=== PATIENT | female | born 1945 | race African-American/Black ===

== ENCOUNTER 2016-10-13 12:49 | Inpatient (IN) | payer OTHER ==
[~2016-10-13] VITALS: Ht 160 cm; Wt 71.4 kg
[~2016-10-13 12:49] MED LIST: ASPIRIN325 M1 PO; CITALOPRAM20 MG PO; CLOPIDOGREL75 MG PO; FUROSEMIDE40 MG PO; LEVO0.0529 PO; PRAVACHOL20 MG PO; SPIRONOLACT25 MG PO; VITAMIN D31000 UNI3 PO
[2016-10-13 14:04] LABS: PLATELET COUNT 249 K/uL (152-353)
[2016-10-13 14:08] VITALS: BP 161/64; TEMP 98.6; Ht 160 cm; Wt 71.4 kg
[2016-10-13] MEDS ORDERED: LOSA50TA PO (14:19)
[2016-10-13 14:22] LABS: POTASSIUM 3.7 mmol/L (3.6-5.2); SODIUM 121 mmol/L (136-145)
[2016-10-13 16:00] VITALS: BP 135/60; TEMP 98.9
[2016-10-13 20:00] VITALS: BP 128/61; TEMP 98.9
[2016-10-13 22:54] LABS: POTASSIUM 4.1 mmol/L (3.6-5.2); SODIUM 122 mmol/L (136-145)
[2016-10-14] VITALS: BP 124/62; TEMP 98.2
[2016-10-14 04:00] VITALS: BP 125/56; TEMP 98.1
[2016-10-14 08:00] VITALS: BP 153/69; TEMP 98
[2016-10-14 08:19] LABS: PLATELET COUNT 201 K/uL (152-353)
[2016-10-14 09:20] LABS: POTASSIUM 4.3 mmol/L (3.6-5.2)
[2016-10-14 12:23] VITALS: BP 90/54; TEMP 98
[2016-10-14 16:00] VITALS: BP 100/58; TEMP 97.8
[2016-10-14 20:00] VITALS: BP 139/71; TEMP 99.3
[2016-10-14 20:38] LABS: POTASSIUM 3.8 mmol/L (3.6-5.2)
[2016-10-15] VITALS: BP 161/68; TEMP 99.1
[2016-10-15 04:00] VITALS: BP 124/75; TEMP 99
[2016-10-15 05:44] LABS: PLATELET COUNT 228 K/uL (152-353)
[2016-10-15 06:01] LABS: POTASSIUM 3.5 mmol/L (3.6-5.2)
[2016-10-15 08:00] VITALS: BP 134/42; TEMP 98.7
[2016-10-15 12:00] VITALS: BP 135/46; TEMP 99
== END 2016-10-15 14:51 | disposition home or self-care (01) | DRG 641 ==
LOC: MED/SURG 12:49
PROVIDERS: ADMIT Family Medicine
DX: E87.1 Hypo-osmolality and hyponatremia (principal); I47.1 Supraventricular tachycardia; N30.00 Acute cystitis without hematuria; R07.89 Other chest pain; R42 Dizziness and giddiness; E78.4 Other hyperlipidemia; I50.9 Heart failure, unspecified; R51 Headache; I49.9 Cardiac arrhythmia, unspecified; I48.91 Unspecified atrial fibrillation; I10 Essential (primary) hypertension; R53.83 Other fatigue; R11.10 Vomiting, unspecified; R60.9 Edema, unspecified
CPT/HCPCS: 36415; 80048; 80053; 82550; 83735; 83880; 84100; 84443; 84484; 85027; 85610; 85730; 93005; 93306; 94640; 94664; 94760; 96360; 96361; 96367; 96372; J1650; J1940

== ENCOUNTER 2016-10-20 15:33 | Observation (INO) | payer OTHER ==
[~2016-10-20] VITALS: Ht 157.5 cm; Wt 71.4 kg
[~2016-10-20 15:33] MED LIST changes: +LOSA50TA PO
--- NOTE | 2016-10-20 15:48 | NUR ---
PT TO ROOM 1106 VIA WC WITH FAMILY. PT ARM ELEVATED AND WARM COMPRESSES APPLIED IMMEDIATLEY. INSTRUCTED PT TO KEEP ELEVATED AND TO CONTINUE WITH WARM COMPRESSES. ASSESSMENT COMPLETE. IV ATTEMPT X 1 PER ERIKA AGUILAR, UNSUCCESSFUL. KINDRA ARRINGTON CALLED IN PER LARA HUANG RN. DR DICKINSON AT TO ASSESS PT. CAPILLARY REFILL GOOD WITH COLOR BACK IN BACK PER DR DICKINSON. 1645- KINDRA ARRINGTON HERE FOR PICC LINE PLACEMENT.
[2016-10-20 17:31] VITALS: BP 149/70; TEMP 98.6; Ht 157.5 cm; Wt 71.4 kg
[2016-10-20 18:12] LABS: PLATELET COUNT 231 K/uL (152-353)
[2016-10-20 18:21] LABS: POTASSIUM 3.9 mmol/L (3.6-5.2); SODIUM 125 mmol/L (136-145)
[2016-10-20 20:00] VITALS: BP 137/60; TEMP 98.6
[2016-10-21 00:17] VITALS: BP 135/57; TEMP 97.9
[2016-10-21 04:00] VITALS: BP 150/72; TEMP 97.6
[2016-10-21 06:20] LABS: PLATELET COUNT 230 K/uL (152-353)
[2016-10-21 06:34] LABS: POTASSIUM 4.4 mmol/L (3.6-5.2)
[2016-10-21 08:00] VITALS: BP 157/73; TEMP 97.3
[2016-10-21 12:10] VITALS: BP 169/70; TEMP 98.5
[2016-10-21 16:00] VITALS: BP 165/69; TEMP 98.8
[2016-10-21 20:00] VITALS: BP 141/62; TEMP 98.4
--- NOTE | 2016-10-21 22:35 | NUR ---
HAILE LUCIO,PCT REPORTED TO ME THAT THE PATIENT WAS COMPLAINING OF CHEST PAIN. ASSESSMENT COLOR PINK, WARM AND DRY, NO SHORTNESS OF BREATH. SHE APPEARS VERY ANXIOUS. 174/78, P 64, O2 SAT 100%. PATIENT DOES NOT SPEAK [place] SO UNABLE TO ASSESS HER FURTHER. DR. DICKINSON NOTIFIED. EKG OBTAINED.
--- NOTE | 2016-10-21 22:45 | NUR ---
DRILLING RIG OPERATOR PRESENT AT BEDSIDE. PATIENT STATES THAT SHE IS NOT HAVING CHEST PAIN. SHE FEELS THAT THE NEEDLES ARE MAKING HER BP GO UP. SHE WANTS MEDICATION FOR IT. DR DICKINSON NOTIFIED AND ORDERS RECEIVED.
[2016-10-22] VITALS: BP 108/69; TEMP 98.1
--- NOTE | 2016-10-22 00:46 | NUR ---
0030 PATIENT IS RESTING COMFORTABLY IN LOW FOWLERS. VOICED NO COMPLAINTS. BP 108/69.
[2016-10-22 04:00] VITALS: BP 164/70; TEMP 98.2
[2016-10-22 05:42] LABS: PLATELET COUNT 245 K/uL (152-353)
[2016-10-22 05:49] LABS: POTASSIUM 3.7 mmol/L (3.6-5.2)
[2016-10-22 08:00] VITALS: BP 126/69; TEMP 97.8
--- NOTE | 2016-10-22 10:39 | NUR ---
1040 PICC LINE TO RT UPPER ARM DC'D . ROUTINE SITE CARE GIVEN. TIP INTACT. PRESSURE APPLIED. DRESSING APPLIED TO AREA. NO BLEEDING NOTED. PT LEFT WITH FAMILY NO ACUTE DISTRESS NOTED
== END 2016-10-22 10:45 | disposition home or self-care (01) ==
LOC: MED/SURG 15:33
PROVIDERS: ADMIT Family Medicine
PROC: 02HV33Z Insertion of Infusion Device into Superior Vena Cava, Percutaneous Approach (ICD-10-PCS; principal; 2016-10-20)
DX: T79.A12A Traumatic compartment syndrome of left upper extremity, initial encounter (principal); I50.9 Heart failure, unspecified; F32.89 Other specified depressive episodes; I80.8 Phlebitis and thrombophlebitis of other sites
CPT/HCPCS: 36571; 80053; 81000; 83735; 83880; 85027; 85651; 93005; 96367; 96374; 96375; 99220; C1751; G0378; G0379; J1200; J1885; J2001; J2270; J2930

== ENCOUNTER 2017-02-09 16:07 | Outpatient (CLI) | payer OTHER | END 2017-02-09 17:10 | disposition home or self-care (01) | LOC: RAD 16:07 | DX: R22.2 Localized swelling, mass and lump, trunk (principal) ==

== ENCOUNTER 2021-02-20 10:11 | Outpatient (CLI) | payer OTHER ==
[2021-02-20 11:20] LABS: PLATELET COUNT 188 K/uL (152-353)
[2021-02-20 11:23] LABS: POTASSIUM 4.4 mmol/L (3.6-5.2); SODIUM 132 mmol/L (136-145)
== END 2021-02-20 19:10 | disposition home or self-care (01) ==
LOC: LABW 10:11
PROVIDERS: ATTEND Nurse Practitioner Family
DX: R50.9 Fever, unspecified (principal); Z20.828 Contact with and (suspected) exposure to other viral communicable diseases; M79.641 Pain in right hand
CPT/HCPCS: 36415; 80053; 82550; 82553; 82728; 83880; 84484; 85027; 85379; 86140; 93005